=== PATIENT | female | born 1960 | race Caucasian/White ===

== ENCOUNTER 2018-03-27 10:02 | Outpatient (CLI) | payer MEDICARE, MEDICAID | END 2018-03-27 10:03 | disposition home or self-care (01) | LOC: BICMAMMO 10:02 | PROVIDERS: ATTEND Obstetrics & Gynecology | DX: Z12.31 Encounter for screening mammogram for malignant neoplasm of breast (principal); Z80.3 Family history of malignant neoplasm of breast | CPT/HCPCS: 77063; 77067 ==

== ENCOUNTER 2019-05-27 14:29 | Outpatient (CLI) | payer MEDICARE, MEDICAID ==
--- NOTE | 2019-05-27 15:21 | MMO ---
Bilateral MAMMO Bilat Screen [facility]. CLINICAL HISTORY: Patient is 58 years old and is seen for screening. The patient has the following family history of breast cancer: maternal aunt, malignant (generic); paternal aunt, malignant (generic) and sister, malignant (generic). The patient has no personal history of cancer. VIEWS: The views performed were: bilateral craniocaudal with tomosynthesis and bilateral mediolateral oblique with tomosynthesis. FILMS COMPARED: The present examination has been compared to prior imaging studies performed at [facility] on 12/03/2014, 12/31/2015, 01/17/2017 and 03/27/2018. This study has been interpreted with the assistance of computer-aided detection. MAMMOGRAM FINDINGS: There are scattered fibroglandular densities. There are no suspicious masses, suspicious calcifications, or new areas of architectural distortion. IMPRESSION: THERE IS NO MAMMOGRAPHIC EVIDENCE OF MALIGNANCY. A ROUTINE FOLLOW-UP MAMMOGRAM IN 1 YEAR IS RECOMMENDED. THE RESULTS OF THIS EXAM WERE SENT TO THE PATIENT. ACR BI-RADS Category 1 - Negative MAMMOGRAPHY NOTE: 1. A negative mammogram report should not delay a biopsy if a dominant of clinically suspicious mass is present. 2. Approximately 10% to 15% of breast cancers are not detected by mammography. 3. Adenosis and dense breasts may obscure an underlying neoplasm. Reported by: KIM RIVERA MD Electonically Signed: [id number]
== END 2019-05-27 14:30 | disposition home or self-care (01) ==
LOC: BICMAMMO 14:29
PROVIDERS: ATTEND Obstetrics & Gynecology
DX: Z12.31 Encounter for screening mammogram for malignant neoplasm of breast (principal); Z80.3 Family history of malignant neoplasm of breast
CPT/HCPCS: 77063; 77067

== ENCOUNTER 2020-06-23 11:06 | Outpatient (CLI) | payer MEDICARE, OTHER | END 2020-06-23 11:07 | disposition home or self-care (01) | LOC: BICMAMMO 11:06 | PROVIDERS: ATTEND Obstetrics & Gynecology | DX: Z12.31 Encounter for screening mammogram for malignant neoplasm of breast (principal); Z85.89 Personal history of malignant neoplasm of other organs and systems; Z80.3 Family history of malignant neoplasm of breast | CPT/HCPCS: 77063; 77067 ==

== ENCOUNTER 2024-10-08 06:28 | Day surgery (SDC) | payer MEDICARE, MEDICAID ==
[2024-10-03 16:24] VITALS: BMI 27.1
[2024-10-03 17:02] LABS: #Basophils 0.07 10x3/uL (0.0-0.2); #Eosinophils 0.07 10x3/uL (0.0-0.7); #Monocytes 0.62 10x3/uL (0.11-0.59); #Neutrophils 6.19 10x3/uL (1.40-6.50); %Basophils 0.7 % (0.0-1.0); %Eosinophils 0.7 % (0.0-10.0); %Lymphocytes 32.0 % (21.0-51.0); %Monocytes 6.0 % (0.0-10.0); %Neutrophils 60.3 % (42.0-75.0); Hematocrit 42.9 % (36.0-47.0); Hemoglobin 15.1 g/dL (12.0-16.0); Mean Corpuscular Hemoglobin 31.9 pg (27.0-31.0); Mean Corpuscular Volume 90.7 fL (78.0-98.0); Platelet Count 219 10x3/uL (130-400); Red Blood Cell (RBC) Count 4.73 mill/uL (4.20-5.40); White Blood Cell (WBC) Count 10.26 10x3/uL (4.8-10.8)
[2024-10-03 17:15] LABS: INR-International Normal Ratio 1.1; Prothrombin Time 14.3 sec (12.0-14.7)
[2024-10-03 17:16] LABS: PTT 36.7 sec (22.9-36.1)
[2024-10-03 17:24] LABS: ALT (SGPT) 22 U/L (Less than 34); AST (SGOT) 23 U/L (11-34); Albumin 4.3 g/dL (3.1-4.5); Alkaline Phosphatase 101 U/L (40-110); Anion Gap 15 mmol/L (10-20); BUN (Urea Nitrogen) 15 mg/dL (9.8-20.1); Bilirubin, Total 0.5 mg/dL (0.3-1.2); Calc. Creatinine Clearance 0 mL/min (70-130); Calcium 9.8 mg/dL (7.8-10.44); Carbon Dioxide 22 mmol/L (23-31); Chloride 103 mmol/L (98-107); Globulin 3.2 g/dL (2.4-3.5); Glucose 97 mg/dL (80-115); Potassium 3.7 mmol/L (3.5-5.1); Sodium 136 mmol/L (136-145)
[2024-10-05 05:13] LABS: Myoglobin, Serum 39 ng/mL (25-58)
[2024-10-08] MEDS ORDERED: Heparin 10,000 UNITS/ 10 ML VIAL ONE (06:48)
[2024-10-08] MEDS ORDERED: Isoproterenol 0.2 MG/1 ML AMP ONE (08:31)
[2024-10-08] MEDS ORDERED: Ondansetron PF 4 MG/2 ML Vial ONE ×2 (09:10→12:44)
[2024-10-08] MEDS ORDERED: SUGAMMADEX SODIUM 200 MG/2 ML VIAL ONE (09:10)
[2024-10-08] MEDS ORDERED: Rocuronium Bromide 10 MG/ML (10ML VIAL) ONE (09:10)
[2024-10-08] MEDS ORDERED: Phenylephrine 40 MG/NS 250 ML 0 ML ONE (09:10)
[2024-10-08] MEDS ORDERED: PROPOFOL 20 ML ONE (09:11)
[2024-10-08] MEDS ORDERED: Nitroglycerin 50 MG/250 ML BOT 250 ML ONE (11:40)
== END 2024-10-08 16:10 | disposition home or self-care (01) ==
LOC: SDC 06:28
PROVIDERS: ATTEND Internal Medicine Cardiovascular Disease
PROC: 4A023FZ Measurement of Cardiac Rhythm, Percutaneous Approach (ICD-10-PCS; principal; 2024-10-08)
PROC: 02583ZZ Destruction of Conduction Mechanism, Percutaneous Approach (ICD-10-PCS; 2024-10-08)
DX: I48.19 Other persistent atrial fibrillation (principal); I42.0 Dilated cardiomyopathy; Z90.710 Acquired absence of both cervix and uterus; Z79.01 Long term (current) use of anticoagulants
CPT/HCPCS: 80053; 83010; 83874; 85025; 85347 ×2; 85610; 85730; 86850; 86900; 86901; 93005; 93623; 93655; 93656; 93657; J1100; J1644 ×2; J2250; J2405; J2704; J2720; J3010; C1730; C1732; C1733; C1759; C1760; C1766; C1769; C1893; C1894

== ENCOUNTER 2024-11-08 13:09 | Outpatient (CLI) | payer MEDICARE, MEDICAID | END 2024-11-08 13:10 | disposition home or self-care (01) | LOC: BICMAMMO 13:09 | PROVIDERS: ATTEND Family Medicine | DX: E89.40 Asymptomatic postprocedural ovarian failure (principal); M85.852 Other specified disorders of bone density and structure, left thigh | CPT/HCPCS: 77080 ==